=== PATIENT | male | born 1975 | race Caucasian/White ===

== ENCOUNTER 2021-05-28 15:42 | Observation (INO) ==
[2021-05-28 17:39] LABS: Basophils # 0.1 10*3/uL (0.0-0.2); Basophils % 0.4 % (0.0-0.8); Eosinophils # 0.1 10*3/uL (0.0-0.87); Eosinophils % 0.8 % (0.00-10.9); Hematocrit 48.6 VOL% (42.0-52.0); Hemoglobin 16.5 GM/DL (14.0-18.0); Immature Granulocytes % 0.4 %; Immature Granulocytes Absolute 0.05 #; Lymphocytes # 2.4 10*3/uL (1.4-4.0); Lymphocytes % 18.2 % (21.2-54.2); Mean Platelet Volume 11.2 FL (9.6-12.0); Monocytes % 6.4 % (1.7-12.7); Neutrophils % 73.8 % (38.7-73.9); Platelet Count 246 T/CUMM (130-400); Red Blood Count 5.46 MC/CUMM (3.8-5.5); Red Cell Distribution Width 13.5 % (9.3-17.3); White Blood Count 13.2 T/CUMM (4-12)
[2021-05-28 17:55] LABS: Barbiturates Screen,Urine Negative (Negative); Benzodiazepines Screen,Urine Negative (Negative); Bilirubin,Urine Negative (Negative); Blood, Urine Negative (Negative); Cannabinoid Screen,Urine Negative (Negative); Glucose,Urine (UA) >=500 mg/dL (Negative); Ketones,Urine 5 mg/dL (Negative); Mucus,Urine Occasional /LPF (Occasional); Nitrite,Urine Negative (Negative); Opiate Screen,Urine Negative (Negative); Phencyclidine Screen,Urine Negative (Negative); Protein,Urine Negative; RBC,Urine 1 /HPF (0-4); Urine Appearance CLEAR (Clear); Urine Color Yellow (Yellow); Urine Specific Gravity 1.035 (1.001-1.035); Urine Urobilinogen < 2.0 EU/DL (0.2-1.0)
[2021-05-28 18:04] LABS: Bilirubin,Total 0.8 MG/DL (0.20-1.00); Calcium 9.5 MG/DL (8.5-10.1); Osmolality,Calculated 281.5 MOS/KG (273-304); Potassium 3.8 MMOL/L (3.5-5.1); Total Protein 7.6 G/DL (6.4-8.2)
[2021-05-28] MEDS ORDERED: GLUCAGON 1 MG VIAL IM PRN ×2 (20:05)
[2021-05-28] MEDS ORDERED: LABETALOL 20 MG/4 ML SYRINGE IV PRN (20:05)
[2021-05-28] MEDS ORDERED: ONDANSETRON 4 MG/2 ML VIAL IV PRN (20:05)
[2021-05-28] MEDS ORDERED: ACETAMINOPHEN 325 MG TABLET PO PRN (20:05)
[2021-05-28] MEDS ORDERED: DEXTROSE 50% 25 GM/50 ML VIAL IV PRN ×2 (20:05)
[2021-05-28] MEDS ORDERED: ENOXAPARIN 40 MG/0.4 ML SYRINGE SUBCUT SCH (20:30)
[2021-05-28] MEDS ORDERED: ROSUVASTATIN 20 MG TABLET PO SCH (21:00)
[2021-05-28] MEDS: INSULIN REGULAR 100 UNIT/ML SUBCUT SCH (23:42)
[2021-05-29 06:28] LABS: Basophils # 0.1 10*3/uL (0.0-0.2); Basophils % 0.5 % (0.0-0.8); Eosinophils # 0.1 10*3/uL (0.0-0.87); Eosinophils % 1.5 % (0.00-10.9); Hematocrit 46.5 VOL% (42.0-52.0); Hemoglobin 15.4 GM/DL (14.0-18.0); Immature Granulocytes % 0.3 %; Immature Granulocytes Absolute 0.03 #; Lymphocytes # 3.1 10*3/uL (1.4-4.0); Lymphocytes % 32.3 % (21.2-54.2); Mean Corpuscular HGB Conc 33.1 GM/DL (32-36); Mean Corpuscular Volume 90.6 FL (87-102); Mean Platelet Volume 11.3 FL (9.6-12.0); Monocytes % 7.3 % (1.7-12.7); Neutrophils % 58.1 % (38.7-73.9); Platelet Count 219 T/CUMM (130-400); Red Blood Count 5.13 MC/CUMM (3.8-5.5); Red Cell Distribution Width 13.3 % (9.3-17.3); White Blood Count 9.6 T/CUMM (4-12)
[2021-05-29 07:10] LABS: Osmolality,Calculated 283.1 MOS/KG (273-304); Potassium 3.6 MMOL/L (3.5-5.1); Risk Ratio 8.35; Thyroid Stimulating Hormone 1.49 uIU/ml (0.358-3.74); VLDL Cholesterol 97.4 MG/DL
[2021-05-29] MEDS: INSULIN REGULAR 100 UNIT/ML SUBCUT SCH ×3 (08:23→16:51)
[2021-05-29] MEDS ORDERED: PANTOPRAZOLE 40 MG TABLET PO SCH (09:00)
[2021-05-29] MEDS ORDERED: amLODIPine 10 MG TABLET PO SCH (09:00)
[2021-05-29] MEDS ORDERED: ASPIRIN 325 MG TABLET PO SCH (09:00)
[2021-05-29] MEDS ORDERED: ENALAPRIL 20 MG TABLET PO SCH (09:00)
[2021-05-29 12:46] VITALS: BP 127/76
[2021-05-29] MEDS ORDERED: NICOTINE 21 MG/24 HR PATCH TRANSDERM PRN (14:10)
== END 2021-05-29 17:36 | disposition home or self-care (01) ==
LOC: N.ED 15:42 → N.EDINP 15:42 → N.5E 21:42
PROVIDERS: ADMIT Internal Medicine Geriatric Medicine; ATTEND Internal Medicine Geriatric Medicine